=== PATIENT | female | born 1955 ===

== ENCOUNTER → 2017-10-03 | Outpatient (CLI) | payer BC ==
--- NOTE | 2017-10-03 17:24 | PN ---
PROGRESS NOTE DATE OF SERVICE: 10/03/2017 A 61-year-old lady has been followed in the Sleep Center for treatment of obstructive sleep apnea-hypopnea syndrome. The patient successfully continued to use her CPAP equipment every night for the whole night around 8 hours per night from the machine reading. CPAP pressure is 13 cm of water. No snoring with the machine, although she increased her weight about 10 pounds since previous visit. The patient has quite old machine and then she started to have some problems. [place] Sleepiness Scale today is 2. MEDICATIONS: Lipitor, Coreg, Klonopin, Vasotec, Lodine, Prozac, Lasix, Lantus, Humalog, K-Dur, . PHYSICAL EXAM: Patient in no distress. BP 146/59, HR 66, RR 16, height 5 feet 4 inches, Weight 59.2, BMI 61.2, temperature 98.6, oxygen saturation on room air 96%. Oropharynx: Low position of soft palate, wide pillars. ABDOMEN: Obese. Neck Supple, no JVD. Thyroid is not palpable. LUNGS Clear to percussion and to auscultation. Good air exchange. No wheezing or rhonchi. HEART S1, S2 regular. No murmurs, gallops, or rubs. ABDOMEN: Obese. Soft and nontender. Bowel sounds are present. No organomegaly appreciated. EXTREMITIES No clubbing or cyanosis. BODY SANDER Awake, alert, and oriented X3. Cranial nerves 2 to 7 intact. There is no fasciculation or atrophy. noted. No focal deficits observed. IMPRESSION: 1. Obstructive sleep apnea-hypopnea syndrome. The patient demonstrated 100% compliance with treatment benefitting from treatment. 2. Obesity, patient increased her weight 10 pounds. Hypertension. 3. Diabetes mellitus. 4. Hyperlipidemia. 5. History of anxiety. PLAN: 1. Patient will continue to use her CPAP equipment every night for the whole night with a pressure of 13 cm of water at the present time. 2. A prescription for new CPAP unit. 3. Losing weight. 4. Sleep hygiene with regular time in bed for at least 8 hours. 5. Prescription for all necessary CPAP supplies including mask, tube, filters. 6. . Thank you very much for allowing me to participate in management of your patient. Haja Swan MD, PhD, FAASM Diplomat of [place] [employer] [place] [employer] Musician Instrumental of [facility] [place] MMMADY / ANGELINE: [id number] /
== END | disposition home or self-care (01) ==
LOC: SLEEP 16:01
PROVIDERS: ATTEND Internal Medicine
DX: G47.33 Obstructive sleep apnea (adult) (pediatric) (principal); I10 Essential (primary) hypertension; E11.9 Type 2 diabetes mellitus without complications; E78.5 Hyperlipidemia, unspecified; E66.9 Obesity, unspecified; Z68.44 Body mass index [BMI] 60.0-69.9, adult; Z79.899 Other long term (current) drug therapy; Z79.02 Long term (current) use of antithrombotics/antiplatelets; Z79.1 Long term (current) use of non-steroidal anti-inflammatories (NSAID); Z79.4 Long term (current) use of insulin

== ENCOUNTER → 2018-01-08 | Outpatient (CLI) | payer BC ==
--- NOTE | 2018-01-08 11:50 | PN ---
PROGRESS NOTE DATE OF SERVICE: 01/08/2018 A 62-year-old lady who has been followed in the Sleep Center for treatment of obstructive sleep apnea-hypopnea syndrome. Recently, she received new CPAP unit and this is her fist visit with the new unit. Patient is able to use machine every night for the whole night without problems. She likes new machine. No problem with the mask, humidification or pressure. I checked her CPAP unit, CPAP pressure is 13 cm of water. Usage is 100% of the time more than 4 hours. Average usage is 9.5 hours. Leak is 13 L/minute which is normal range. Apnea-hypopnea index for the last month only 0.5, which is perfect. [place] Sleepiness Scale today a is only 1. MEDICATIONS: The same, Lipitor, Coreg: Klonopin, Prozac, Lasix, Lantus, Humalog, potassium supplement, Wellbutrin XL. PHYSICAL EXAM: Patient in no distress. BP 152/74, HR 61, RR 18, weight 348.6, temperature 97.7. OROPHARYNX: Low position of soft palate. ABDOMEN: Obese. Neck Supple, no JVD. Thyroid is not palpable. LUNGS Clear to percussion and to auscultation. Good air exchange. No wheezing or rhonchi. HEART S1, S2 regular. No murmurs, gallops, or rubs. EXTREMITIES No clubbing or cyanosis. HERPETOLOGIST Awake, alert, and oriented X3. Cranial nerves 2 to 7 intact. There is no fasciculation or atrophy. noted. No focal deficits observed. IMPRESSION: 1. Obstructive sleep apnea-hypopnea syndrome. Patient demonstrated 100% compliance with her new CPAP unit, benefitting from treatment. 2. Obesity. 3. Hypertension. 4. Diabetes mellitus. 5. History of anxiety. 6. Hyperlipidemia. PLAN: 1. Patient will continue to use your CPAP equipment every night for the whole night. 2. Losing weight. 3. Sleep hygiene with regular time in bed for at least 8 hours. 4. No driving if feeling any sleepiness. 5. Will maintain prescriptions for all necessary CPAP supplies including mask, tube, filters. 6. Followup visit in 1 year. Thank you very much for allowing me to participate in the management of your patient. Sincerely, Haja Swan MD, PhD, FAASM Diplomat of [place] [employer] [place] [employer] Vegetable Washing Machine Operator of [facility] [place] MMMADY / ANGELINE: [id number] /
== END | disposition home or self-care (01) ==
LOC: SLEEP 10:40
PROVIDERS: ATTEND Internal Medicine
DX: G47.33 Obstructive sleep apnea (adult) (pediatric) (principal); E66.9 Obesity, unspecified; I10 Essential (primary) hypertension; E11.9 Type 2 diabetes mellitus without complications; F41.9 Anxiety disorder, unspecified; E78.5 Hyperlipidemia, unspecified; Z99.89 Dependence on other enabling machines and devices

== ENCOUNTER → 2019-01-01 | Outpatient (CLI) | payer BC ==
--- NOTE | 2019-01-01 20:05 | PN ---
PROGRESS NOTE DATE OF SERVICE: 01/01/2019 63-year-old lady has been followed in the Sleep Center for treatment of obstructive sleep apnea-hypopnea syndrome. Patient has successfully continued to use her CPAP equipment every night for the whole night without significant problems related to mask fitting, pressure. She is asking to discuss with her how to adjust humidity. [place] Sleepiness Scale is 1. I checked her CPAP unit, CPAP pressure is 13 cm of water. Usage is 30/30 nights for more than 4 hours with average usage 9.5 hours. Leak is 12 L/minute, which is in normal range. Apnea-hypopnea index is only 0.4, which is absolutely perfect. MEDICATIONS: Lipitor, Coreg, Klonopin, Prozac, Lasix, Lantus, Humalog, potassium supplement, Wellbutrin XL. PHYSICAL EXAM: Patient in no distress. BP 133/70, HR 68, RR 16, height 5 feet 6 inches, weight 356 pounds which is 8 pounds more than during visit one year ago, temperature 97.9. Oropharynx low position of soft palate. Mallampati 3. Neck Supple, no JVD. Thyroid is not palpable. LUNGS Clear to percussion and to auscultation. Good air exchange. No wheezing or rhonchi. HEART S1, S2 regular. No murmurs, gallops, or rubs. ABDOMEN: Obese. Soft and nontender. Bowel sounds are present. No organomegaly appreciated. EXTREMITIES No clubbing or cyanosis. TERRAZZO WORKER Awake, alert, and oriented X3. Cranial nerves 2 to 7 intact. There is no fasciculation or atrophy. noted. No focal deficits observed. IMPRESSION: 1. Obstructive sleep apnea-hypopnea syndrome. Patient demonstrated the compliance with treatment benefitting from treatment. 2. Obesity. 3. Hypertension. 4. Diabetes mellitus. 5. History of anxiety. 6. Hyperlipidemia. PLAN: 1. Patient will continue to use CPAP equipment every night for the whole night. 2. I explained to the patient how to adjust humidity. 3. Prescription for all necessary CPAP supplies including mask, tube, filters. 4. Losing weight. 5. No driving if feeling sleepiness. 6. Followup visit in 1 year or earlier if patient has any problems. Thank you very much for allowing me to participate in management of your patient. Sincerely, Haja Swan MD, PhD, FAASM Diplomat of [place] [employer] [place] [employer] Medicine Linter Operator of [facility] [place] MMSURENDRAL / MILON: [id number] /
== END | disposition home or self-care (01) ==
LOC: SLEEP 14:43
PROVIDERS: ATTEND Internal Medicine
DX: G47.33 Obstructive sleep apnea (adult) (pediatric) (principal); E66.9 Obesity, unspecified; I10 Essential (primary) hypertension; E11.9 Type 2 diabetes mellitus without complications; E78.5 Hyperlipidemia, unspecified; Z86.59 Personal history of other mental and behavioral disorders; Z99.89 Dependence on other enabling machines and devices; Z68.43 Body mass index [BMI] 50.0-59.9, adult; Z79.4 Long term (current) use of insulin; Z79.899 Other long term (current) drug therapy

== ENCOUNTER → 2020-03-03 | Outpatient (CLI) | payer BC ==
--- NOTE | 2020-03-03 20:21 | SFUN ---
SLEEP CENTER FOLLOW UP NOTE DATE OF SERVICE: 03/03/2020. 64-year-old lady has been followed in Sleep Center for treatment of obstructive sleep apnea-hypopnea syndrome. Patient continued to use CPAP equipment every night without significant problems. No snoring with the machine. [place] Sleepiness Scale today is only 2. I checked her CPAP unit. CPAP pressure of 13 cm of water. Usage is 30/30 nights for more than 4 hours. Average usage 10.1 hour. Leak is 12 L/minute which is acceptable. Apnea-hypopnea index only 0.3. The patient is using Richey FX nasal pillow, small size mask. MEDICATIONS: Aspirin 81 mg once a day, Atorvastatin 20 mg once a day, carvedilol 12.5 mg twice a day, Klonopin 0.5 mg once a day at bedtime, Lasix 40 mg once a day, niacin 500 mg once a day, Prozac 20 mg once a day,Wellbutrin 150 mg once a day. Nasacort one spray each nostril once a day, Lodine 400 mg twice a day, Vasotec 20 mg twice a day. PHYSICAL EXAM: Patient in no distress, BP 182/66, HR 80, RR 15, height 5 feet 5 inches, weight 353 pounds, BMI 58.7, temperature 98.2, oxygen saturation at room air 96%. Oropharynx low position of soft palate Mallampati 3. NECK: Supple, no JVD. Thyroid is not palpable. LUNGS: Clear to percussion and to auscultation. Good air exchange. No wheezing or rhonchi. HEART: S1, S2 regular. No murmurs, gallops, or rubs. ABDOMEN: Obese. Soft and nontender. Bowel sounds are present. No organomegaly appreciated. EXTREMITIES: No clubbing or cyanosis. ELECTRONIC COMMERCE SPECIALIST: Awake, alert, and oriented X3. Cranial nerves 2 to 7 intact. There is no fasciculation or atrophy. noted. No focal deficits observed. IMPRESSION: 1. Obstructive sleep apnea-hypopnea syndrome. The patient demonstrated good compliance with treatment benefitting from treatment. 2. Obesity. 3. Hypertension. 4. Diabetes mellitus. 5. History of anxiety. 6. Hyperlipidemia. 7. Coronary artery disease. 8. History of diastolic heart failure. PLAN: 1. Patient will continue to use PAP equipment every night for the whole night. 2. Sleep hygiene with regular time in bed for at least 7-1/2 to 8 hours. 3. Precautions related to driving. No driving if feeling sleepiness. 4. I will maintain all necessary prescription for PAP supplies including mask, tube, filters. 5. Watching weight. 6. No driving if feeling sleepiness. 7. Follow-up visit in 6 months or earlier if patient has any problems. Thank you very much for allowing me to participate in management of your patient. Sincerely, Haja Swan MD, PhD, FAASM Diplomat of [place] [employer] Special[employer] [place] [employer] of Internal Medicine Green Chain Worker of [facility] [place] MMODL / IJN: [id number] /
== END | disposition home or self-care (01) ==
LOC: SLEEP 14:44
PROVIDERS: ATTEND Internal Medicine
DX: G47.33 Obstructive sleep apnea (adult) (pediatric) (principal); E66.9 Obesity, unspecified; E11.9 Type 2 diabetes mellitus without complications; E78.5 Hyperlipidemia, unspecified; I25.10 Atherosclerotic heart disease of native coronary artery without angina pectoris; Z86.79 Personal history of other diseases of the circulatory system; Z86.59 Personal history of other mental and behavioral disorders; Z79.82 Long term (current) use of aspirin; Z79.899 Other long term (current) drug therapy; Z99.89 Dependence on other enabling machines and devices

== ENCOUNTER → 2023-01-08 | Outpatient (CLI) | payer MEDICARE ==
--- NOTE | 2023-01-09 07:52 | CT ---
EXAMINATION TYPE: CT left knee - [facility] Protocol DATE OF EXAM: 01/08/2023 COMPARISON: None HISTORY: pre-op CT DLP: 1352 mGycm FINDINGS: There is mild to moderate arthropathy of the hip joints. There is osteitis pubis densities in There is severe osteoarthritis of the tricompartment joint space knee with hypertrophic spurring. Sma ll loose body is not excluded. Lucencies involving the dome of the talus can be associated with osteochondritis. There is a large right lower anterior abdominal wall hernia. Surgical clips in the pelvis suggested. IMPRESSION: 1. Severe osteoarthritis of the left knee.
== END | disposition home or self-care (01) ==
LOC: RADCTMAIN 12:54
PROVIDERS: ATTEND Orthopaedic Surgery
DX: Z01.818 Encounter for other preprocedural examination (principal); M17.0 Bilateral primary osteoarthritis of knee; E10.9 Type 1 diabetes mellitus without complications; Z79.4 Long term (current) use of insulin

== ENCOUNTER → 2023-01-08 | Outpatient (CLI) | payer MEDICARE ==
[2023-01-08 14:57] LABS: INR 0.9 (<1.2); Partial Thromboplastin Time 22.2 sec (22.0-30.0)
[2023-01-08 20:00] LABS: Appearance,Urine Clear (Clear); Bilirubin,Urine Negative (Negative); Blood,Urine Negative (Negative); Color,Urine Yellow (Yellow); Ketones,Urine Negative (Negative); Nitrite,Urine Negative (Negative); Specific Gravity,Urine 1.013 (1.001-1.030); Urobilinogen,Urine 0.2 E.U./DL
[2023-01-08 20:04] LABS: Bacteria,Urine 1+ (None Seen)
[2023-01-08 20:44] LABS: ALT 34 U/L (8-44); AST 26 U/L (13-35); Albumin 4.2 d/dL (3.8-4.9); Albumin/Globulin Ratio 1.75 Ratio (1.60-3.17); Alkaline Phosphatase 93 U/L (41-126); BUN/Creat Ratio 21.75 Ratio (12.00-20.00); Blood Urea Nitrogen 26.1 mg/dL (9.0-27.0); Calcium 9.3 mg/dL (8.7-10.3); Carbon Dioxide 28.7 mmol/L (21.6-31.8); Chloride 102 mmol/L (96-109); Chol/HDL Ratio 2.12 Ratio; Globulin 2.4 d/dL (1.6-3.3); Glucose 137 mg/dL (70-110); LDL Cholesterol,Calculated 63.8 mg/dL (0.0-131.0); Potassium 4.3 mmol/L (3.5-5.5); Sodium 140 mmol/L (135-145); Total Bilirubin 0.4 mg/dL (0.3-1.2); Total Protein 6.6 d/dL (6.2-8.2); VLDL Calculation 15.52 mg/dL (5.00-40.00)
[2023-01-08 20:46] LABS: HCT 37.5 % (37.2-46.3); HGB 12.6 d/dL (12.0-15.0); MCH 30.6 pg (27.0-32.0); MCHC 33.6 d/dL (32.0-37.0); Mean Platelet Volume 10.6 FL (9.5-12.2); NRBC Per 100 WBC 0 X 10*3/uL (0.00-0.01); Platelet Count 227 X 10*3/uL (140-440); RBC 4.12 X 10*6/uL (4.10-5.20); RDW 12.2 % (11.5-14.5); WBC 5.06 X 10*3/uL (4.50-10.00)
== END | disposition home or self-care (01) ==
LOC: LABPAT 13:40
PROVIDERS: ATTEND Orthopaedic Surgery
DX: Z01.812 Encounter for preprocedural laboratory examination (principal); M17.12 Unilateral primary osteoarthritis, left knee; E10.9 Type 1 diabetes mellitus without complications; E78.5 Hyperlipidemia, unspecified
CPT/HCPCS: 80053; 80061; 81001; 85027; 85610; 85730; 87070

== ENCOUNTER 2023-01-30 11:13 | Day surgery (SDC) | payer BC, MEDICARE ==
[2023-01-23 10:45] VITALS: BMI 47.0
[~2023-01-30 11:13] MED LIST: ACETAMINOPHEN TAB 500 MG TAB PO PRN; DEXAMETHASONE SOD PHOSPHATE 10 MG/ML 1 ML VIAL IV PRN; DOCUSATE 100 MG CAP PO PRN; FAMOTIDINE 20 MG/2 ML VIAL IVP PRN; HYDROmorphone 0.5 MG/0.5 ML SYRINGE IVP PRN; KETOROLAC 15 MG/ML 1 ML VIAL IVP PRN; LIDOCAINE 1% (10MG/ML) FOR IV START INTRADERMA PRN; ONDANSETRON 4 MG/2 ML VIAL IVP PRN; ROPIVACAINE/EPI/CLONIDINE/KET 50 ML SYRINGE MISCELLANE PRN; TRANEXAMIC 1,000 MG/100ML-NACL 1,000 MG in SALINE 1 100ML.BAG IV PRN; TRANEXAMIC 1,000 MG/100ML-NACL 1,000 MG in SALINE 1 100ML.BAG IVPB PRN; ceFAZolin 3 GM in SODIUM CHLORIDE 0.9% 100 ML IVPB PRN; oxyCODONE ER 10 MG TAB.ER.12H PO PRN
[2023-01-30 12:14] LABS: Glucose,Whole Blood 77 mg/dL (70-110)
[2023-01-30] MEDS: LACTATED RINGERS 1,000 ML IV SCH ×3 (12:28→17:17)
[2023-01-30] MEDS: ONDANSETRON 4 MG/2 ML VIAL IVP ONE ×2 (12:38→17:14)
[2023-01-30] MEDS ORDERED: MIDAZOLAM 2 MG/2 ML VIAL IVP ONE (12:48)
[2023-01-30] MEDS ORDERED: hydrOXYzine pamoate 25 MG CAP PO PRN (15:45)
[2023-01-30] MEDS ORDERED: HYDROmorphone 0.5 MG/0.5 ML SYRINGE IVP PRN ×2 (15:45)
[2023-01-30] MEDS ORDERED: NALOXONE 0.4 MG/ML 1 ML VIAL IV PRN (15:45)
[2023-01-30] MEDS ORDERED: HYDROcodone/APAP 5-325MG 1 EACH TAB PO PRN (15:45)
[2023-01-30] MEDS ORDERED: ONDANSETRON 4 MG/2 ML VIAL IVP PRN (15:45)
[2023-01-30] MEDS ORDERED: HYDROmorphone 1 MG/ML 1 ML SYRINGE IVP PRN (15:45)
--- NOTE | 2023-01-30 15:48 | P.OP ---
Date of Procedure: 01/30/23 Preoperative Diagnosis: 1. Severe left knee osteoarthritis 2. BMI 47 3. Type I diabetic, preoperative hemoglobin A1c is 5.7 Postoperative Diagnosis: Same Procedure(s) Performed: 1. Left total knee arthroplasty 2. Computer assisted musculoskeletal navigation using CT/MRI images Implants: 1. [place] Triathlon CR Femur Size #5 2. [place] Triathlon [place] Tibial Base Size #5 3. [place] Triathlon CS poly Size #10, 10-mm 4. [place] Triathlon all poly patella, Size #32 Anesthesia: regional, spinal Surgeon: Srinivas Mooney Fire Information Officer #1: Ana Abbott Estimated Blood Loss (ml): 100 IV fluids (ml): 600 Pathology: none sent Condition: stable Disposition: PACU Indications for Procedure: I met with the patient preoperatively in the office setting and discussed treatment of their symptomatic knee arthritis. They failed a long course of nonsurgical treatment and elected to proceed with an elective total knee replacement. I discussed the potential risks and complications at length and gave them ample time to ask questions. The patient understands her elevated risk due to her BMI 47.2. We discussed that she is at an increased risk for complication particularly delayed wound healing, infection, and mechanical failure of her implants. She voiced her understanding of this and requested proceeding with surgery. Risks discussed included: risks from anesthesia, superficial site surgical infection, acute and/or chronic periprosthetic joint infection, delayed wound healing, drainage, wound necrosis, instability, stiffness, stiffness requiring manipulation and/or revision surgery, damage to local blood vessels or nerves, aseptic loosening of the implants, extensor mechanism issues including disruption, patellar maltracking, avascular necrosis etc., continued or worsened knee pain, generalized dissatisfaction with surgical outcome, need for revision surgery, an inability to regain preinjury level of function, DVT, PE, other medical complications, and possibly loss of life or l imb. The patient voiced their understanding that while these are the most common complications other less common complications are possible. They provided both their verbal and written consent to go forward with surgery. Operative Findings: Severe left knee has arthritis with full-thickness cartilage loss all 3 compartments. Description of Procedure: The patient was identified in preoperative holding and the correct operative extremity was verified and marked with a marker. I reviewed the consent form with the patient at length. All of their questions were answered. The patient was given a block by anesthesia. They were then brought back to the operating room. They were transferred onto the operating room table where a general anes thetic, preoperative antibiotics, and tranexamic acid were administered by anesthesia. A tourniquet was applied to the proximal aspect of the operative extremity. The contralateral extremity was padded under the heel and secured to the operating room table with a nonsterile blue towel and tape. The ipsilateral arm was carefully draped across the patient's chest and secured with a pillow and foam. A post was applied over the lateral aspect of the ipsilateral thigh and a bolster was placed under the ipsilateral foot. I verified that the operative extremity was stable and the knee was flexed to 90. The operative extremity was then placed in a leg swann, nonsterile drapes were applied, and the extremity was prepped and draped sterilely in the standard sterile fashion. Prior to starting surgery timeout was performed identifying the correct patient, operative extremity, and procedure. The leg was then elevated, exsanguinated with an Esmarch bandage, and the tourniquet was inflated. An anterior midline incision was made sharply with a scalpel. Once I had dissected deep to the superficial fascial layer medial and lateral flaps were elevated. A medial parapatellar arthrotomy was created. Upon opening the knee joint there were diffuse arthritic changes in all 3 compartments. The anterior horn of the medial meniscus were sharply released and a medial release was performed around the posterior medial corner of the knee to facilitate retractor placement. The fat pad was excised with electrocautery. The patella was found to be severely arthritic and a provisional cut was made with a sagittal saw to facilitate mobilization of the extensor mechanism during the procedure. Remnants of the ACL and PCL were then excised from the notch. 4 mm pins were then placed within the incision in the medial distal femur and proximal tibia. Arrays were applied to the pins and I verified they were completely tightened. The knee was then registered with the [employer] robot and manipulations in implant position were made to balance the knee and opitmize implant position. Using the [employer] robotic saw all cuts were made in accordance with our plan. After all bony fragments had been removed the cuts were verified with the planar probe. The tibia was then subluxed forward and sized. The knee was brought into flexion and a lamina assisted living associate was placed to allow removal of the meniscal remnants both medially and laterally as well as posterior osteophytes. Local anesthetic was then infiltrated around the joint capsule. Trial implants were then placed within the knee. Range of motion and collateral ligament tension was then evaluated. Adjustments in implant size and position were then made accordingly. Once the knee was felt to be appropriately balanced the Sixto pins were removed. The patella was then recut, sized, and punched. A trial patellar button was then placed. With the trial components in place, the patella tracked midline. The femur was then drilled and the trial component removed. The trial tibial component was then appropriately rotated, pinned, and prepared for the keel. All trial components were then removed from the knee. The knee was thoroughly irrigated with pulsatile lavage. Cement was prepared via vacuum mixing in a bowl on the back table. I then hand pressurized cement into the femur and tibia and placed the implants beginning with the tibial base tray and poly liner, femoral component, and finally the patellar button. All extruded cement was removed including from the pin sites. Once the cement had hardened the knee was evaluated one final time with the final polyethylene liner in place. The knee had full extension and flexion and felt stable to varus and valgus stress throughout the arc of motion. The tourniquet was released and with the tourniquet down the patella tracked midline. All bleeders were controlled with electrocautery. The knee was then soaked for 3 minutes with a dilute Betadine soak. The knee was thoroughly irrigated using 3 L of sterile saline and pulsatile lavage. A deep drain was placed. The extensor mechanism was then reapproximated using pop off Vicryl sutures followed by a running barbed suture. The knee was then closed in layers with a 0 strata fix for the deep fascial layer, 2-0 strata fix for the superficial subcutaneous layer and Monocryl and Steri-Strips for the skin. A sterile dressing and drain sponge were applied. I verified that all instrument, sponge, and sharp counts were correct. The patient was then transferred off the operating room table, extubated, and brought to recovery having tolerated the procedure well. Ana Abbott PA-C was required as a skilled assistant financial accountant due to the complexity of the procedure for patient positioning, draping, retraction, placement of hardware, and closure of wound. PLAN: The patient can weight-bear as tolerated on the operative extremity. DVT prophylaxis with aspirin 81 mg twice a day based on preoperative risk stratification. Given the patient's BMI we're going to send her home on doxycycline 100 mg twice a day for 2 weeks until her incision heals. Follow-up in the office in 2 weeks for wound check and x-rays of the knee including an AP and lateral.
[2023-01-30 16:06] LABS: Glucose,Whole Blood 108 mg/dL (70-110)
--- NOTE | 2023-01-30 16:27 | XR ---
EXAMINATION TYPE: XR knee limited LT DATE OF EXAM: 01/30/2023 COMPARISON: NONE HISTORY: 67-year-old female postoperative evaluation TECHNIQUE: 2 views FINDINGS: Images show placement of left total knee arthroplasty. Both distal femoral and proximal tib ial components of the prosthesis are well seated without periprosthetic fracture. Alignment grossly a natomic. Anterior soft tissue swelling with scattered soft tissue air as well as intra-articular air related to recent operation. A surgical drain is in place. IMPRESSION: Uncomplicated postoperative appearance left total knee arthroplasty.
[2023-01-30] MEDS: carvediloL 12.5 MG TAB PO SCH (17:17)
[2023-01-30] MEDS: HYDROcodone/APAP 5-325MG 1 EACH TAB PO PRN ×2 (17:37→23:27)
--- NOTE | 2023-01-30 18:13 | P.CONS ---
History of Present Illness - Reason for Consult Consult date: 01/30/23 Medical management Requesting physician: Srinivas Mooney - Chief Complaint Left knee surgery - History of Present Illness This is a very pleasant 67-year-old patient, follows with Dr. Plummer. Chronic stable medical conditions include diabetes, hypertension, hyperlipidemia, osteoporosis, obstructive sleep apnea uses CPAP, right ankle,, anxiety. Patient had undergone left knee arthroplasty. Reclining in bed. Comfortable. No nausea vomiting. No chest pain or short of breath. Family at the bedside. Review of systems: GEN.: None EYES: None HEENT: None NECK: None RESPIRATORY: None CARDIOVASCULAR: None GASTROINTESTINAL: None GENITOURINARY: None MUSCULOSKELETAL: Joint pains LYMPHATICS: None HEMATOLOGICAL: None PSYCHIATRY: None NEUROLOGICAL: None Social history: No smoking or alcohol. . Physical examination: VITAL SIGNS: 97.9, 82, 18, 156/60, 90% on room air GENERAL: BMI 47.2, declining but awake tired. EYES: Pupils equal. Conjunctiva normal. HEENT: External appearance of nose and ears normal, oral cavity grossly normal. NECK: JVD not raised; masses not palpable. HEART: First and second heart sounds are normal; no edema. LUNGS: Respiratory rate normal; clear to auscultation. ABDOMEN: Soft, nontender, liver spleen not palpable, no masses palpable. PSYCH: Alert and oriented x3; mood and affect normal. MUSCULOSKELETAL:No Clubbing/cyanosis;muscles-grossly intact. Dressing over the left knee area and OA NEUROLOGICAL: Cranial nerves grossly intact; no facial asymmetry, power and sensation grossly intact. LYMPHATICS: No lymph nodes palpable in the axilla and neck INVESTIGATIONS, reviewed in the clinical context: 01/08/2023: White count 5.0 hemoglobin 12.6 platelets 227 sodium 140 potassium 4.3 creatinine 1.2 Assessment and plan: -Left total knee arthroplasty Aspirin. Pain control. -Morbid obesity BMI 47.2 Outpatient, weight loss measures -Diabetes mellitus type 2, chronically on insulin Trulicity. Lantus. Sliding scale insulin -Glaucoma Resume eyedrops -Essential hypertension Vasotec. Coreg. -Anxiety, depression otherwise specified Wellbutrin XL. Klonopin. -Hyperlipidemia Lipitor Care was discussed with the patient. Follow sliding scale. Questions answered. Thank you Dr. Mooney Past Medical History Past Medical History: Diabetes Mellitus, Eye Disorder, Hyperlipidemia, Hypertension, Osteoarthritis (OA), Sleep Apnea/CPAP/BIPAP Additional Past Medical History / Comment(s): Heart palpitations. CPAP use. Right eye glaucoma. History of Any Multi-Drug Resistant Organisms: None Reported Past Surgical History: Adenoidectomy, Hysterectomy, Tonsillectomy Additional Past Surgical History / Comment(s): Left eye surgery. Past Anesthesia/Blood Transfusion Reactions: Family History of Problems w/ Anesthesia Additional Past Anesthesia/Blood Transfusion Reaction / Comm: Sister had problems, patient unsure what. Past Psychological History: Anxiety Smoking Status: Never smoker Past Alcohol Use History: None Reported Past Drug Use History: None Reported - Past Family History Brother(s) Family Medical History: Cancer Medications and Allergies Home Medications Medication Instructions Recorded Confirmed Type Aspirin [Adult Low Dose Aspirin EC] 81 mg PO DAILY 01/23/23 01/30/23 History Atorvastatin [Lipitor] 20 mg PO HS 01/23/23 01/30/23 History Bimatoprost [Lumigan 0.01% Ophth 1 drop RIGHT EYE HS 01/23/23 01/30/23 History Soln] Brinzolamide [Brinzolamide 1% 1 drop RIGHT EYE BID 01/23/23 01/30/23 History Ophth Susp] Cholecalciferol [Vitamin D3 (125 125 mcg PO DAILY 01/23/23 01/30/23 History Mcg = 5000 Iu)] Dorzolamide HCl/Pf [Dorzolamide 2% 1 drop RIGHT EYE BID 01/23/23 01/30/23 History Eye Drop] Dulaglutide [Trulicity] 4.5 mg SQ PEDERSEN 01/23/23 01/30/23 History Enalapril Maleate [Vasotec] 20 mg PO BID 01/23/23 01/30/23 History Furosemide [Lasix] 20 mg PO HS 01/23/23 01/30/23 History Furosemide [Lasix] 40 mg PO QAM 01/23/23 01/30/23 History Insulin Aspart [NovoLOG Flexpen] 0 units SQ DIRECTED PRN 01/23/23 01/23/23 History Insulin Glargine [Lantus Vial] 24 unit SQ BID 01/23/23 01/30/23 History Levocetirizine Dihydrochloride 5 mg PO DAILY 01/23/23 01/23/23 History [Xyzal] Magnesium (Unknown Dose) 1 tab PO DAILY 01/23/23 01/30/23 History Niacin 500 mg PO DAILY 01/23/23 01/30/23 History [place]-3/Dha/Epa/Fish Oil [Fish Oil 1 each PO DAILY 01/23/23 01/30/23 History 1,000 mg Softgel] Potassium Chloride [Potassium 20 meq PO DAILY 01/23/23 01/30/23 History Chloride ER (K-Dur GEQ)] Timolol 0.5% Ophth Soln [Timoptic 1 drop RIGHT EYE BID 01/23/23 01/30/23 History 0.5% Ophth Soln] Triamcinolone Acetonide [Nasacort] 1 spray EA NOSTRIL DIRECTED 01/23/23 01/30/23 History buPROPion XL [Wellbutrin XL] 300 mg PO QAM 01/23/23 01/30/23 History carvediloL [Coreg] 25 mg PO BID 01/23/23 01/30/23 History clonazePAM [KlonoPIN] 0.5 mg PO BID 01/23/23 01/30/23 History traMADol HCL 50 mg PO TID PRN 01/23/23 01/30/23 History Allergies Allergy/AdvReac Type Severity Reaction Status Date / Time ciprofloxacin [From Cipro] Allergy Rash/Hives Verified 01/30/23 11:55 Penicillins Allergy Rash/Hives Verified 01/30/23 11:55 prednisone Allergy Tachycardia Verified 01/30/23 11:55 Physical Exam Vitals: Vital Signs Temp Pulse Resp BP Pulse Ox 01/30/23 18:02 82 156/90 90 L 01/30/23 17:45 96 137/61 92 L 01/30/23 16:48 65 16 142/64 100 01/30/23 16:45 97.9 F 70 18 144/97 92 L 01/30/23 16:33 67 16 140/63 100 01/30/23 16:18 66 16 136/69 100 01/30/23 15:57 65 16 110/55 100 01/30/23 15:42 97.2 F L 68 16 106/54 100 01/30/23 11:56 97.6 F 73 20 158/69 98 Intake and Output 01/30/23 01/30/23 01/30/23 06:59 14:59 22:59 Intake Total 700 250 Output Total 100 Balance 700 150 Intake: IV 700 250 Output: Urine 0 Estimated Blood Loss 100 Other: Weight 136.8 kg 136.8 kg
--- NOTE | 2023-01-30 18:48 | P.ANPRN ---
Procedure Note - Anesthesia - Nerve Block Performed Left Adductor Canal Single Time Out Performed: Yes Date of Procedure: 01/30/23 Procedure Start Time: 12:47 Procedure Stop Time: 12:51 Location of Patient: PreOp Indication: Acute Post-Operative Pain, Requested by Surgeon Sedation Type: Sedate with meaningful contact maintained Preparation: Sterile Prep Needle Types: Pajunk Needle Gauge: 21 Ultrasound used to visualize needle placement: Yes Ultrasound used to observe medication spread: Yes Blood Aspirated: No Pain Paresthesia on Injection Noted: No Resistance on Injection: Normal Image Stored and Saved: Yes Events: Uneventful and Well Tolerated (Ropivacaine 0.5% 20 mL)
--- NOTE | 2023-01-30 18:51 | P.ANPRN ---
Procedure Note - Anesthesia - Nerve Block Performed Left iPack Single Time Out Performed: Yes Date of Procedure: 01/30/23 Procedure Start Time: 12:52 Procedure Stop Time: 12:55 Location of Patient: PreOp Indication: Acute Post-Operative Pain, Requested by Surgeon Sedation Type: Sedate with meaningful contact maintained Preparation: Sterile Prep Position: Supine Needle Types: Pajunk Needle Gauge: 21 Ultrasound used to visualize needle placement: Yes Ultrasound used to observe medication spread: Yes Blood Aspirated: No Pain Paresthesia on Injection Noted: No Resistance on Injection: Normal Image Stored and Saved: Yes Events: Uneventful and Well Tolerated (Ropivacaine 0.5% 20 mL)
[2023-01-30 19:55] LABS: Glucose,Whole Blood 126 mg/dL (70-110)
[2023-01-30] MEDS: ASPIRIN 81 MG PO SCH (20:07)
[2023-01-30] MEDS: clonazePAM 0.5 MG TAB PO SCH ×2 (20:07→21:12)
[2023-01-30] MEDS: ceFAZolin 3 GM in SODIUM CHLORIDE 0.9% 100 ML IVPB SCH (20:08)
[2023-01-30] MEDS ORDERED: SENNOSIDES-DOCUSATE SODIUM 1 EACH TAB PO SCH (21:00)
[2023-01-30] MEDS ORDERED: INSULIN DETEMIR (LEVEMIR) 100 UNIT/ML SYR SQ SCH (21:00)
[2023-01-30] MEDS ORDERED: FUROSEMIDE 20 MG TAB PO SCH (21:00)
[2023-01-30] MEDS ORDERED: LATANOPROST 0.005% OPHTH DROPS 2.5 ML BTL RIGHT EYE SCH (21:00)
[2023-01-30] MEDS ORDERED: ATORVASTATIN 20 MG TAB PO SCH (21:00)
[2023-01-30] MEDS: lisinopriL 20 MG TAB PO SCH (21:13)
[2023-01-30] MEDS: DORZOLAMIDE HCL 2% DROPS 10 ML BTL RIGHT EYE SCH (21:14)
[2023-01-30] MEDS: TIMOLOL 0.5% OPHTH DROPS 5 ML BTL RIGHT EYE SCH (21:14)
[2023-01-30] MEDS: INSULIN DETEMIR (LEVEMIR) 100 UNIT/ML SYR SQ SCH (21:14)
[2023-01-30] MEDS: BRINZOLAMIDE RIGHT EYE SCH (23:42)
[2023-01-31] MEDS: HYDROcodone/APAP 5-325MG 1 EACH TAB PO PRN ×2 (05:26→11:26)
[2023-01-31] MEDS: ceFAZolin 3 GM in SODIUM CHLORIDE 0.9% 100 ML IVPB SCH (05:27)
[2023-01-31] MEDS: LACTATED RINGERS 1,000 ML IV SCH (06:08)
[2023-01-31 06:10] LABS: Glucose,Whole Blood 115 mg/dL (70-110)
[2023-01-31] MEDS: INSULIN DETEMIR (LEVEMIR) 100 UNIT/ML SYR SQ SCH (06:19)
[2023-01-31] MEDS: carvediloL 12.5 MG TAB PO SCH (06:20)
[2023-01-31 07:26] VITALS: BP 128/68; PULSE 74; RESP 21; TEMP 98.4
[2023-01-31] MEDS: lisinopriL 20 MG TAB PO SCH (08:11)
[2023-01-31] MEDS: ASPIRIN 81 MG PO SCH (08:12)
[2023-01-31] MEDS: clonazePAM 0.5 MG TAB PO SCH (08:12)
[2023-01-31] MEDS: TIMOLOL 0.5% OPHTH DROPS 5 ML BTL RIGHT EYE SCH (08:15)
[2023-01-31] MEDS: BRINZOLAMIDE RIGHT EYE SCH (08:15)
[2023-01-31] MEDS: DORZOLAMIDE HCL 2% DROPS 10 ML BTL RIGHT EYE SCH (08:15)
--- NOTE | 2023-01-31 08:47 | P.DS ---
Providers Expected date of discharge: 01/31/23 Attending physician: Srinivas Mooney Consults: 01/30/23 16:47 Consult Physician Routine Consulting Provider: Michael Campuzano Consult Reason/Comments: medical managment. Do you want consulting provider notified?: Yes Primary care physician: [facility] Course: This is a 67-year-old female who has been followed in our office by Dr. Mooney for continued complaints of left knee pain due to left knee osteoarthritis. Treatment options were discussed, and patient elected to undergo a left total knee arthroplasty. Patient was seen pre-operatively by Estephanie Gray NP, Dr. Loyd, and Dr. Fenton and cleared for surgery. Patient underwent a left total knee arthroplasty on 01/30/[address] Mooney. The procedure was performed without complication or sequelae. The patient is doing fairly well postoperatively. Vital signs and labs are stable on postoperative day #1. Patient was examined bedside this morning with Dr. Mooney. Patient states she is overall doing very well and the pain in her left knee is well-controlled. She has been up to the bedside commode. She will work with physical therapy this morning. Patient is comfortable being discharged home today. Patient has no new complaints this morning. On examination, the patient is sitting up in bed in no apparent distress. She is alert and orientated 3. On inspection of the left knee, there is a clean, dry, intact surgical dressing in place with no bleeding or drainage through the dressing. Patient has good strength and ROM of the left ankle and toes. Motor and sensory function is intact of the left lower extremity. The dorsalis pedis pulse is easily palpable, the left lower extremity is warm and well perfused with brisk capillary refill. Calf is soft and non-tender to palpation. Hemovac drain removed bedside this morning during examination. Patient is discharged home with home health care today in good condition, pending medical clearance. Patient will follow-up in the office at [facility] in 2 weeks. Please see med rec for accurate list of discharge medication. Plan - Discharge Summary Discharge Rx Participant: Yes New Discharge Prescriptions: New Docusate [Colace] 100 mg PO BID #60 capsule HYDROcodone/APAP 5-325MG [[place] 5-325] 1 - 2 tab PO Q6HR PRN 7 Days #32 tab PRN Reason: Pain Omeprazole 40 mg PO DAILY 30 Days #30 cap Aspirin 81 mg PO BID 30 Days #60 tab Doxycycline Monohydrate 100 mg PO BID 14 Days #28 cap Diclofenac Sodium [Voltaren] 75 mg PO BID 30 Days #60 tab No Action Furosemide [Lasix] 40 mg PO QAM Triamcinolone Acetonide [Nasacort] 1 spray EA NOSTRIL DIRECTED clonazePAM [KlonoPIN] 0.5 mg PO BID carvediloL [Coreg] 25 mg PO BID Insulin Glargine [Lantus Vial] 24 unit SQ BID Enalapril Maleate [Vasotec] 20 mg PO BID Atorvastatin [Lipitor] 20 mg PO HS traMADol HCL 50 mg PO TID PRN PRN Reason: Pain Magnesium (Unknown Dose) 1 tab PO DAILY Brinzolamide [Brinzolamide 1% Ophth Susp] 1 drop RIGHT EYE BID Bimatoprost [Lumigan 0.01% Ophth Soln] 1 drop RIGHT EYE HS Insulin Aspart [NovoLOG Flexpen] 0 units SQ DIRECTED PRN PRN Reason: Blood Sugar - High Potassium Chloride [Potassium Chloride ER (K-Dur GEQ)] 20 meq PO DAILY [place]-3/Dha/Epa/Fish Oil [Fish Oil 1,000 mg Softgel] 1 each PO DAILY Niacin 500 mg PO DAILY Levocetirizine Dihydrochloride [Xyzal] 5 mg PO DAILY buPROPion XL [Wellbutrin XL] 300 mg PO QAM Timolol 0.5% Ophth Soln [Timoptic 0.5% Ophth Soln] 1 drop RIGHT EYE BID Cholecalciferol [Vitamin D3 (125 Mcg = 5000 Iu)] 125 mcg PO DAILY Furosemide [Lasix] 20 mg PO HS Dulaglutide [Trulicity] 4.5 mg SQ PEDERSEN Dorzolamide HCl/Pf [Dorzolamide 2% Eye Drop] 1 drop RIGHT EYE BID Aspirin [Adult Low Dose Aspirin EC] 81 mg PO DAILY Discharge Medication List Aspirin [Adult Low Dose Aspirin EC] 81 mg PO DAILY 01/23/23 [History] Atorvastatin [Lipitor] 20 mg PO HS 01/23/23 [History] Bimatoprost [Lumigan 0.01% Ophth Soln] 1 drop RIGHT EYE HS 01/23/23 [History] Brinzolamide [Brinzolamide 1% Ophth Susp] 1 drop RIGHT EYE BID 01/23/23 [History] Cholecalciferol [Vitamin D3 (125 Mcg = 5000 Iu)] 125 mcg PO DAILY 01/23/23 [History] Dorzolamide HCl/Pf [Dorzolamide 2% Eye Drop] 1 drop RIGHT EYE BID 01/23/23 [History] Dulaglutide [Trulicity] 4.5 mg SQ PEDERSEN 01/23/23 [History] Enalapril Maleate [Vasotec] 20 mg PO BID 01/23/23 [History] Furosemide [Lasix] 20 mg PO HS 01/23/23 [History] Furosemide [Lasix] 40 mg PO QAM 01/23/23 [History] Insulin Aspart [NovoLOG Flexpen] 0 units SQ DIRECTED PRN 01/23/23 [History] Insulin Glargine [Lantus Vial] 24 unit SQ BID 01/23/23 [History] Levocetirizine Dihydrochloride [Xyzal] 5 mg PO DAILY 01/23/23 [History] Magnesium (Unknown Dose) 1 tab PO DAILY 01/23/23 [History] Niacin 500 mg PO DAILY 01/23/23 [History] [place]-3/Dha/Epa/Fish Oil [Fish Oil 1,000 mg Softgel] 1 each PO DAILY 01/23/23 [History] Potassium Chloride [Potassium Chloride ER (K-Dur GEQ)] 20 meq PO DAILY 01/23/23 [History] Timolol 0.5% Ophth Soln [Timoptic 0.5% Ophth Soln] 1 drop RIGHT EYE BID 01/23/23 [History] Triamcinolone Acetonide [Nasacort] 1 spray EA NOSTRIL DIRECTED 01/23/23 [History] buPROPion XL [Wellbutrin XL] 300 mg PO QAM 01/23/23 [History] carvediloL [Coreg] 25 mg PO BID 01/23/23 [History] clonazePAM [KlonoPIN] 0.5 mg PO BID 01/23/23 [History] traMADol HCL 50 mg PO TID PRN 01/23/23 [History] Aspirin 81 mg PO BID 30 Days #60 tab 01/31/23 [Rx] Diclofenac Sodium [Voltaren] 75 mg PO BID 30 Days #60 tab 01/31/23 [Rx] Docusate [Colace] 100 mg PO BID #60 capsule 01/31/23 [Rx] Doxycycline Monohydrate 100 mg PO BID 14 Days #28 cap 01/31/23 [Rx] HYDROcodone/APAP 5-325MG [[place] 5-325] 1 - 2 tab PO Q6HR PRN 7 Days #32 tab 01/31/23 [Rx] Omeprazole 40 mg PO DAILY 30 Days #30 cap 01/31/23 [Rx] Follow up Appointment(s)/Referral(s): [facility] [NON-STAFF] - As Needed Srinivas Mooney MD [Medical Doctor] - 2 Weeks Activity/Diet/Wound Care/Special Instructions: Weight bear to tolerance on operative extremity with a walker. Keep operative dressing in place until follow-up appointment in the office. Call the office if dressing becomes saturated or falls off. May shower over dressing. Take pain medication as prescribed. Take aspirin 81mg twice a day x 4 weeks for blood clot prevention. Follow-up in the office in two weeks at [facility]. Call the office with any questions or concerns, Discharge Disposition: HOME WITH HOME HEALTH SERVICES
[2023-01-31] MEDS ORDERED: FUROSEMIDE 40 MG TAB PO SCH (09:00)
[2023-01-31] MEDS ORDERED: buPROPion XL 300 MG TAB.ER.24H PO SCH (09:00)
[2023-01-31] MEDS ORDERED: LORATADINE 10 MG TAB PO SCH (09:00)
[2023-01-31] MEDS ORDERED: POTASSIUM CHLORIDE ER 20 MEQ TAB.ER PO SCH (10:30)
[2023-01-31 11:12] LABS: Basophils # (A) 0.05 X 10*3/uL (0.00-0.10); Basophils % (A) 0.6 %; Eosinophils # (A) 0.15 X 10*3/uL (0.04-0.35); Eosinophils % (A) 1.9 %; HGB 10.7 d/dL (12.0-15.0); Lymphocytes # (A) 1.19 X 10*3/uL (0.90-5.00); MCH 30.5 pg (27.0-32.0); MCHC 32.4 d/dL (32.0-37.0); Monocytes # (A) 0.87 X 10*3/uL (0.20-1.00); NRBC Per 100 WBC 0 X 10*3/uL (0.00-0.01); Neutrophils # (A) 5.63 X 10*3/uL (1.80-7.70); Neutrophils % (A) 71.2 %; Platelet Count 186 X 10*3/uL (140-440); RBC 3.51 X 10*6/uL (4.10-5.20); RDW 12.4 % (11.5-14.5); WBC 7.91 X 10*3/uL (4.50-10.00)
[2023-01-31 11:17] LABS: Glucose,Whole Blood 193 mg/dL (70-110)
--- NOTE | 2023-01-31 13:57 | P.PN ---
Progress Note - Text Progress Note Date: 01/31/23 - Chief Complaint Left knee surgery This is a very pleasant 67-year-old patient, follows with Dr. Plummer. Chronic stable medical conditions include diabetes, hypertension, hyperlipidemia, osteoporosis, obstructive sleep apnea uses CPAP, right ankle,, anxiety. Patient had undergone left knee arthroplasty. Reclining in bed. Comfortable. No nausea vomiting. No chest pain or short of breath. Family at the bedside. January 31: Didn't ambulate. Pain control. No nausea vomiting. Did tolerate breakfast. Care was discussed with the patient. Follow-up with PCP upon discharge. Current medications reviewed Social history: No smoking or alcohol. . Physical examination: VITAL SIGNS: 98.4, 74, 21, 1 28 x 68, 98% on room air GENERAL: Comfortable EYES: Pupils equal. Conjunctiva normal. HEENT: External appearance of nose and ears normal, oral cavity grossly normal. NECK: JVD not raised; masses not palpable. HEART: First and second heart sounds are normal; no edema. LUNGS: Respiratory rate normal; clear to auscultation. ABDOMEN: Soft, nontender, liver spleen not palpable, no masses palpable. PSYCH: Alert and oriented x3; mood and affect normal. MUSCULOSKELETAL:No Clubbing/cyanosis;muscles-grossly intact. Dressing over the left knee area and OA INVESTIGATIONS, reviewed in the clinical context: 01/31/2023: Hemoglobin 10.7 01/08/2023: White count 5.0 hemoglobin 12.6 platelets 227 sodium 140 potassium 4.3 creatinine 1.2 Assessment and plan: -Left total knee arthroplasty Aspirin. Pain control. -Morbid obesity BMI 47.2 Outpatient, weight loss measures -Diabetes mellitus type 2, chronically on insulin Trulicity. Lantus. Sliding scale insulin -Acute postprocedure blood loss anemia expected from surgery Ferrous sulfate 325 mg by mouth twice a day -Glaucoma Continue eyedrops -Essential hypertension Vasotec. Coreg. -Anxiety, depression otherwise specified Wellbutrin XL. Klonopin. -Hyperlipidemia Lipitor Discussed. Ferrous sulfate. Follow with PCP upon discharge. Thank you Dr. Mooney Past Medical History Past Medical History: Diabetes Mellitus, Eye Disorder, Hyperlipidemia, Hypertension, Osteoarthritis (OA), Sleep Apnea/CPAP/BIPAP Additional Past Medical History / Comment(s): Heart palpitations. CPAP use. Right eye glaucoma. History of Any Multi-Drug Resistant Organisms: None Reported Past Surgical History: Adenoidectomy, Hysterectomy, Tonsillectomy Additional Past Surgical History / Comment(s): Left eye surgery. Past Anesthesia/Blood Transfusion Reactions: Family History of Problems w/ Anesthesia Additional Past Anesthesia/Blood Transfusion Reaction / Comm: Sister had problems, patient unsure what. Past Psychological History: Anxiety Smoking Status: Never smoker Past Alcohol Use History: None Reported Past Drug Use History: None Reported - Past Family History Brother(s) Family Medical History: Cancer
== END 2023-01-31 13:53 | disposition home health service (06) ==
LOC: OR 11:13 → 4SSUR 16:09 → OR 01-31 13:53
PROVIDERS: ATTEND Orthopaedic Surgery
DX: M17.12 Unilateral primary osteoarthritis, left knee (principal); G89.18 Other acute postprocedural pain; E11.9 Type 2 diabetes mellitus without complications; G89.29 Other chronic pain; I10 Essential (primary) hypertension; E78.5 Hyperlipidemia, unspecified; G47.33 Obstructive sleep apnea (adult) (pediatric); F41.9 Anxiety disorder, unspecified; F32.A Depression, unspecified; Z79.4 Long term (current) use of insulin; E66.01 Morbid (severe) obesity due to excess calories; Z68.42 Body mass index [BMI] 45.0-49.9, adult; Z79.899 Other long term (current) drug therapy
CPT/HCPCS: 97161; 64447; 64999; 85025; 73560; 27447; C1776; C1713; J2250; J0690 ×2; J2405; J3490; J1170 ×2; J1885

== ENCOUNTER → 2023-11-11 | Outpatient (CLI) | payer MEDICARE ==
[2023-11-11 14:20] VITALS: BP 160/73; PULSE 76; RESP 18; TEMP 98.2
--- NOTE | 2023-11-11 15:07 | P.SLEEP ---
History of Present Illness DATE: 11/11/2023 CONSULTATION/NEW PATIENT EVALUATION HISTORY OF PRESENT ILLNESS/SLEEP-WAKE EVALUATION: 68-year-old lady had been e valuated in the sleep center for obstructive sleep apnea hypopnea syndrome. Patient was diagnosed with obstructive sleep apnea hypopnea syndrome in our institution. She was on treatment with CPAP. Last time was seen in our office several years ago. Recently patient received new CPAP unit for replacement of her old CPAP unit. Patient was able to use CPAP equipment every night for the whole night. I checked CPAP unit. CPAP pressure is 13 cm of water. Usage is 100% of the time. Average usage 9.3 hours per night. Leak is increased to 30.7 L/min. Apnea hypopnea index is 0.2, which is in normal range. SLEEP SCHEDULE: Usually sleep schedule from 2 AM until 10 PM. FALLING ASLEEP: No problems with falling asleep, no TV in bedroom. DU without significant problemsRING SLEEP: Patient sleeps in different positions with loud snoring while using her CPAP. . Patient wakes up from sleep once to use the restroom. No history of hypnogogical hallucinations, sleep paralysis, or cataplexy. DURING THE DAY/WAKE STATE: No sleepiness during the day. [place] sleepiness scale is 0. Patient does not take naps. PAST MEDICAL HISTORY: Diabetes, hyperlipidemia, hypertension. PAST SURGICAL HISTORY: Tonsillectomy and adenoidectomy, hysterectomy, left knee replacement, bilateral eye surgery. MEDICATIONS: Please see below. SOCIAL HISTORY: Please see below. FAMILY HISTORY: Hypertension, heart problems, asthma, cancer, diabetes. REVIEW OF SYSTEMS: No snoring while using CPAP. No fevers. No double vision. No recent chest pain. No shortness of breath. No abdominal pain. No bleeding ep isodes. No blood in urine. No seizure episodes. PHYSICAL EXAMINATION: GENERAL: A pleasant patient without any distress. VITAL SIGNS: Please see below, weight 320.4 pounds, BMI 53.1. HEENT: PERRLA, EOMI. Evaluation of oropharynx showed tongue protrudes midline, low position of soft palate Mallampati 4. NECK: Supple. No JVD. Thyroid is not palpable. 17-2/3 inches in circumference. LUNGS: Clear to percussion and to auscultation. Good air exchange. No wheezing or rhonchi. HEART: S1, S2 regular. No murmurs, gallops or rubs. ABDOMEN: Soft and nontender. Bowel sounds are present. No organomegaly appreciated. EXTREMITIES: No clubbing or cyanosis. CASHIER COURTESY BOOTH: Awake, alert, and oriented x3. Cranial nerves 2 to 7 intact. There is no fasciculation or atrophy noted. No focal deficits observed. ASSESSMENT: 1. Obstructive sleep apnea hypopnea syndrome for many years. Patient demonstrated 100% compliance with new CPAP unit. Normal respiration on CPAP, benefiting from treatment. 2. Obesity, BMI 53.1. 3. Hypertension. 4. Diabetes mellitus. 5 hyperlipidemia. 6 . Status post tonsillectomy and adenoidectomy. 7. Status post hysterectomy. 8. Status post left knee replacement. 9 . Status post bilateral eye surgery. 1 PLAN: 1. Patient will continue to use CPAP equipment every night for the whole night 2. Prescriptions for all necessary CPAP supplies including mask, tube and filters. 3. Preferable position during sleep on the side. 4. No driving if patient feels any sleepiness. Patient is aware of civil and criminal liability for unsafe driving. 5. Sleep hygiene with regular sleep time for at least 7.5-8 hours. 6. Watching and losing weight. 7. Follow-up visit in 6 months, or earlier if patient has any problems. Thank you very much for referring this patient for consultation. Sincerely, Haja Swan MD, PhD, FAASM. Diplomat of [place] [employer], Sleep Medicine Board by [place] [employer] Sql Developer of [facility] [place] Past Medical History Past Medical History: Diabetes Mellitus, Hyperlipidemia, Hypertension, Sleep Apnea/CPAP/BIPAP Additional Past Medical History / Comment(s): HEART PALPITATIONS, ARTHRITIS, SNORING IF NOT ON CPAP, RESTLESS LEGS. History of Any Multi-Drug Resistant Organisms: None Reported Past Surgical History: Adenoidectomy, Hysterectomy, Orthopedic Surgery, Tonsillectomy Additional Past Surgical History / Comment(s): LEFT TOTAL KNEE REPLACEMENT, LEFT AND RIGHT EYE SURGERY Past Psychological History: Anxiety, Depression Smoking Status: Never smoker Past Alcohol Use History: None Reported Past Drug Use History: None Reported - Past Family History Mother Family Medical History: Diabetes Mellitus, Hypertension Additional Family Medical History / Comment(s): ARTHRTIS, HEART PROBLEMS, RESTLESS LEGS, Brother(s) Family Medical History: Sleep Apnea/CPAP/BIPAP Additional Family Medical History / Comment(s): HEART PROBLEMS, ARTHRITIS Medications and Allergies Home Medications Medication Instructions Recorded Confirmed Type Aspirin [Adult Low Dose Aspirin EC] 81 mg PO DAILY 01/23/23 11/11/23 History Atorvastatin [Lipitor] 20 mg PO HS 01/23/23 01/30/23 History Bimatoprost [Lumigan 0.01% Ophth 1 drop RIGHT EYE HS 01/23/23 01/30/23 History Soln] Brinzolamide [Brinzolamide 1% 1 drop RIGHT EYE BID 01/23/23 01/30/23 History Ophth Susp] Cholecalciferol [Vitamin D3 (125 125 mcg PO DAILY 01/23/23 01/30/23 History Mcg = 5000 Iu)] Dorzolamide HCl/Pf [Dorzolamide 2% 1 drop RIGHT EYE BID 01/23/23 01/30/23 History Eye Drop] Dulaglutide [Trulicity] 4.5 mg SQ WEEKLY 01/23/23 11/11/23 History Enalapril Maleate [Vasotec] 20 mg PO BID 01/23/23 11/11/23 History Furosemide [Lasix] 60 mg PO HS 01/23/23 11/11/23 History Furosemide [Lasix] 60 mg PO QAM 01/23/23 01/30/23 History Insulin Aspart [NovoLOG Flexpen] 0 units SQ DIRECTED PRN 01/23/23 11/11/23 History Insulin Glargine [Lantus Vial] 25 unit SQ BID 01/23/23 11/11/23 History Levocetirizine Dihydrochloride 5 mg PO DAILY 01/23/23 01/23/23 History [Xyzal] Magnesium (Unknown Dose) 1 tab PO DAILY 01/23/23 01/30/23 History Niacin 500 mg PO DAILY 01/23/23 01/30/23 History [place]-3/Dha/Epa/Fish Oil [Fish Oil 1 each PO DAILY 01/23/23 01/30/23 History 1,000 mg Softgel] Potassium Chloride [Potassium 10 meq PO BID 01/23/23 01/30/23 History Chloride ER (K-Dur GEQ)] Timolol 0.5% Ophth Soln [Timoptic 1 drop RIGHT EYE BID 01/23/23 01/30/23 History 0.5% Ophth Soln] Triamcinolone Acetonide [Nasacort] 1 spray EA NOSTRIL DIRECTED 01/23/23 01/30/23 History buPROPion XL [Wellbutrin XL] 300 mg PO QAM 01/23/23 11/11/23 History carvediloL [Coreg] 25 mg PO BID 01/23/23 11/11/23 History clonazePAM [KlonoPIN] 0.5 mg PO BID 01/23/23 11/11/23 History Aspirin 81 mg PO BID 30 Days #60 tab 01/31/23 Rx Diclofenac Sodium [Voltaren] 75 mg PO BID 30 Days #60 tab 01/31/23 Rx Doxycycline Monohydrate 100 mg PO BID 14 Days #28 cap 01/31/23 Rx Ferrous Sulfate [Feosol] 325 mg PO BID #60 tab 01/31/23 Rx HYDROcodone/APAP 5-325MG [[place] 1 - 2 tab PO Q6HR PRN 7 Days #32 01/31/23 Rx 5-325] tab Omeprazole 40 mg PO DAILY 30 Days #30 cap 01/31/23 Rx Sennosides-Docusate Sodium 2 each PO HS #30 tab 01/31/23 Rx [Senokot-S] Atorvastatin [Lipitor] 20 mg PO DAILY 11/11/23 11/11/23 History Potassium Chloride 10 meq PO BID 11/11/23 11/11/23 History traMADol HCL 50 mg PO TID 11/11/23 11/11/23 History Allergies Allergy/AdvReac Type Severity Reaction Status Date / Time ciprofloxacin [From Cipro] Allergy Rash/Hives Verified 01/30/23 11:55 Penicillins Allergy Rash/Hives Verified 01/30/23 11:55 prednisone Allergy Tachycardia Verified 01/30/23 11:55 Physical Exam Vitals: Vital Signs Temp Pulse Resp BP Pulse Ox 11/11/23 14:19 98.2 F 76 18 160/73 98 Intake and Output 11/10/23 11/11/23 11/11/23 22:59 06:59 14:59 Other: Weight 137.098 kg Sleep Note - Sleep Data ESS Total: 0 - Sleep Note Sleep Note: Temperature: 98.2 F Pulse Rate: 76 Respiratory Rate: 18 Blood Pressure: 160/73 SpO2: 98 Height: 5 ft 3.2 in Weight: 137.098 kg BMI: Neck Circumference: 17.6
== END ==
LOC: 3 N SLEEP 13:07
PROVIDERS: ATTEND Internal Medicine
DX: G47.33 Obstructive sleep apnea (adult) (pediatric) (principal); E66.9 Obesity, unspecified; I10 Essential (primary) hypertension; E11.9 Type 2 diabetes mellitus without complications; E78.5 Hyperlipidemia, unspecified; Z98.890 Other specified postprocedural states; Z90.89 Acquired absence of other organs; Z96.652 Presence of left artificial knee joint; Z90.710 Acquired absence of both cervix and uterus; Z68.43 Body mass index [BMI] 50.0-59.9, adult; Z79.4 Long term (current) use of insulin; Z79.85 Long-term (current) use of injectable non-insulin antidiabetic drugs; Z79.899 Other long term (current) drug therapy; Z88.1 Allergy status to other antibiotic agents; Z88.0 Allergy status to penicillin; Z88.8 Allergy status to other drugs, medicaments and biological substances; Z99.89 Dependence on other enabling machines and devices
CPT/HCPCS: 99211

== ENCOUNTER → 2024-07-08 | Outpatient (CLI) | payer MEDICARE ==
[2024-07-08 13:12] VITALS: BP 128/81; PULSE 74; RESP 16; TEMP 98.4
--- NOTE | 2024-07-08 13:28 | P.PROGSL ---
Subjective DATE: 07/08/2024 FOLLOW UP VISIT. Patient with obstructive sleep apnea hypopnea syndrome return to sleep center for follow-up visit. Information from previous visit have been reviewed. Patient is using PAP equipment every night for the whole night, getting PAP supplies in time. The patient does not have significant problems with the mask, PAP unit and humidification. [place] sleepiness scale is 2, which is normal. I checked information from PAP unit. PAP unit pressure 13 cm H2O. Usage is 100% for more then 4 hours, average 9 hours per night. Leak is 32 l/m, which is in acceptable range. Apnea Hypopnea Index is 0.1, which is normal. MEDICATIONS have been reviewed, please see below. During physical exam: GENERAL: A pleasant patient without any distress. VITAL SIGNS: Please see below, weight is 284 lbs. HEENT: PERRLA, EOMI.low position of soft palate, Mallapati 4 . NECK: Supple. No JVD. LUNGS: Clear to percussion and to auscultation. Good air exchange. No wheezing or rhonchi. HEART: S1, S2 regular. ABDOMEN: Soft and nontender.[] EXTREMITIES: No clubbing or cyanosis. AWNINGS MECHANIC: Awake, alert, and oriented x3. No focal deficit. Impressions: 1. Obstructive sleep apnea-hypopnea syndrome. Patient demonstrated great compliance with treatment, benefiting from treatment. 2. Obesity, BMI 51.1, patient lost 36 pounds since previous visit. 3. Hypertension. 4. Diabetes mellitus. 5. Hyperlipidemia. 6. Status post tonsillectomy and adenoidectomy. 7. Status post bilateral eye surgery for glaucoma. 8. Status post left knee replacement. 9. Status post hysterectomy. Plan: 1. Continue using PAP equipment every night for the whole night. 2. Sleep hygiene with regular time in bed for at least 7.5-8 hours 3. PAP unit should stay lower then position of the head. 4. Advised patient to remove all remaining water from humidifier canister daily and make it dry after each usage. Refill canister with fresh distilled water before each usage. 5. Watching and continue losing weight. 6. Precautions related to driving. No driving if feel any sleepiness. 7. I will maintain prescription for PAP supplies including mask, tube, filters. 8. Follow up visit in 8 months or earlier if patient has any problems. Thank you very much for allowing me to participate in the management of your patient. Haja Swan MD, PhD, FAASM. Diplomat of [place] [employer], Sleep Medicine Board by [place] Clinical Care Leader of [facility] [place] Objective - Vital Signs Vital Signs: Vital Signs Temp 98.4 F 07/08/24 13:11 Pulse 74 07/08/24 13:11 Resp 16 07/08/24 13:11 BP 128/81 07/08/24 13:11 Pulse Ox 98 07/08/24 13:11 FiO2 Intake & Output 07/07/24 07/08/24 07/08/24 18:59 06:59 18:59 Weight 128.82 kg Home Medications: Home Medications Medication Instructions Recorded Confirmed Type Aspirin [Adult Low Dose Aspirin EC] 81 mg PO DAILY 01/23/23 11/11/23 History Atorvastatin [Lipitor] 20 mg PO HS 01/23/23 01/30/23 History Bimatoprost [Lum[place] 0.01% Ophth 1 drop RIGHT EYE HS 01/23/23 01/30/23 History Soln] Brinzolamide [Brinzolamide 1% 1 drop RIGHT EYE BID 01/23/23 01/30/23 History Ophth Susp] Cholecalciferol [Vitamin D3 (125 125 mcg PO DAILY 01/23/23 01/30/23 History Mcg = 5000 Iu)] Dorzolamide HCl/Pf [Dorzolamide 2% 1 drop RIGHT EYE BID 01/23/23 01/30/23 History Eye Drop] Dulaglutide [Trulicity] 4.5 mg SQ WEEKLY 01/23/23 11/11/23 History Enalapril Maleate [Vasotec] 20 mg PO BID 01/23/23 11/11/23 History Furosemide [Lasix] 60 mg PO HS 01/23/23 11/11/23 History Furosemide [Lasix] 60 mg PO QAM 01/23/23 01/30/23 History Insulin Aspart [NovoLOG Flexpen] 0 units SQ DIRECTED PRN 01/23/23 11/11/23 History Insulin Glargine (Lantus) [Lantus 25 unit SQ BID 01/23/23 11/11/23 History Vial] Levocetirizine Dihydrochloride 5 mg PO DAILY 01/23/23 01/23/23 History [Xyzal] Magnesium (Unknown Dose) 1 tab PO DAILY 01/23/23 01/30/23 History Niacin 500 mg PO DAILY 01/23/23 01/30/23 History [place]-3/Dha/Epa/Fish Oil [Fish Oil 1 each PO DAILY 01/23/23 01/30/23 History 1,000 mg Softgel] Potassium Chloride [Potassium 10 meq PO BID 01/23/23 01/30/23 History Chloride ER (K-Dur GEQ)] Timolol 0.5% Ophth Soln [Timoptic 1 drop RIGHT EYE BID 01/23/23 01/30/23 History 0.5% Ophth Soln] Triamcinolone Acetonide [Nasacort] 1 spray EA NOSTRIL DIRECTED 01/23/23 01/30/23 History buPROPion XL [Wellbutrin XL] 300 mg PO QAM 01/23/23 11/11/23 History carvediloL [Coreg] 25 mg PO BID 01/23/23 11/11/23 History clonazePAM [KlonoPIN] 0.5 mg PO BID 01/23/23 11/11/23 History Aspirin 81 mg PO BID 30 Days #60 tab 01/31/23 Rx Diclofenac Sodium [Voltaren] 75 mg PO BID 30 Days #60 tab 01/31/23 Rx Doxycycline Monohydrate 100 mg PO BID 14 Days #28 cap 01/31/23 Rx Ferrous Sulfate [Feosol] 325 mg PO BID #60 tab 01/31/23 Rx HYDROcodone/APAP 5-325MG [[place] 1 - 2 tab PO Q6HR PRN 7 Days #32 01/31/23 Rx 5-325] tab Omeprazole 40 mg PO DAILY 30 Days #30 cap 01/31/23 Rx Sennosides-Docusate Sodium 2 each PO HS #30 tab 01/31/23 Rx [Senokot-S] Atorvastatin [Lipitor] 20 mg PO DAILY 11/11/23 11/11/23 History Potassium Chloride 10 meq PO BID 11/11/23 11/11/23 History traMADol HCL 50 mg PO TID 11/11/23 11/11/23 History
== END ==
LOC: 3 N SLEEP 13:03
PROVIDERS: ATTEND Internal Medicine
DX: G47.33 Obstructive sleep apnea (adult) (pediatric) (principal); E66.9 Obesity, unspecified; I10 Essential (primary) hypertension; E11.9 Type 2 diabetes mellitus without complications; E78.5 Hyperlipidemia, unspecified; Z90.89 Acquired absence of other organs; Z68.43 Body mass index [BMI] 50.0-59.9, adult; Z96.652 Presence of left artificial knee joint; Z90.710 Acquired absence of both cervix and uterus; Z98.890 Other specified postprocedural states; Z88.1 Allergy status to other antibiotic agents; Z88.0 Allergy status to penicillin; Z88.8 Allergy status to other drugs, medicaments and biological substances
CPT/HCPCS: 99212